=== PATIENT | male | born 1995 | race Caucasian/White ===

== ENCOUNTER 2024-04-08 21:01 | Emergency (ER) | payer MEDICAID ==
[~2024-04-08] VITALS: Ht 157.5 cm; Wt 54.5 kg
[2024-04-08 23:31] LABS: ALANINE AMINOTRANSFERASE 24 U/L (12-78); ALBUMIN 3.6 G/DL (3.4-5.0); ALBUMIN/GLOBULIN RATIO 1.2 (1.1-1.5); ALKALINE PHOSPHATASE 69 IU/L (46-116); ANION GAP 9 (8-16); ASPARTATE AMINO TRANSFERASE 9 U/L (10-37); BILIRUBIN,TOTAL 0.3 MG/DL (0.1-1.0); BLOOD UREA NITROGEN 13 MG/DL (7-18); BUN/CREATININE RATIO 19.7 (10.0-20.0); CALCIUM 8.3 MG/DL (8.5-10.1); CHLORIDE 105 MMOL/L (99-107); CREATININE 0.66 MG/DL (0.60-1.10); GLUCOSE 113 MG/DL (70-104); POTASSIUM 3.6 MMOL/L (3.5-5.1); SODIUM 141 MMOL/L (135-145); TOTAL CARBON DIOXIDE 27.1 MMOL/L (24-32); TOTAL PROTEIN 6.6 G/DL (6.4-8.2); eCRCL 129 ML/MIN; eGFR > 90 ML/MIN
[2024-04-09] MEDS: normal saline 1000ML IV soln IVB ONE (00:29)
[2024-04-09 07:53] VITALS: BP 109/77; PULSE 75; RESP 18; TEMP 98; O2SAT 98
== END 2024-04-09 06:00 | disposition home or self-care (01) ==
LOC: ER 21:01
DX: R42 Dizziness and giddiness (principal); T50.915A Adverse effect of multiple unspecified drugs, medicaments and biological substances, initial encounter; Y92.89 Other specified places as the place of occurrence of the external cause
CPT/HCPCS: 36415; 80053; 93005; 96360; 96361; 99285; J7030